=== PATIENT | female | born 1995 | race Caucasian/White ===

== ENCOUNTER → 2017-04-10 | Day surgery (SDC) | payer BC ==
[~2017-04-10] VITALS: Ht 177.8 cm; Wt 63.5 kg
[~2017-04-10] MED LIST: ACETAMINOPHEN 325MG/HYDROcodone 7.5MG/15ML UDC ONE; AMPICILLIN/SULBAC 3 GM/NS 100 ML IV SCH; CHLORHEXIDINE GLUCONATE 2 % 1 PACK (2 CLOTHS) TOPICAL PRN; FAMOTIDINE 20 MG/2 ML VIAL ONE; INSULIN HUMAN REGULAR 1,000 UNITS/10 ML VIAL SQ PRN; LACTATED RINGER'S 1000 ML IV PRN; MEPERIDINE HCL 25 MG/ML VIAL ONE; METOPROLOL TARTRATE 25 MG TAB PO PRN; MICROFIBRILLAR COLLAGEN HEMOSTAT 1 GM PKT ONE; MIDAZOLAM HCL 2 MG/2 ML VIAL ONE; MORPHINE SULFATE 4 MG/ML INJ ONE; NORG10TA PO; ONDANSETRON HCL 4 MG/2 ML VIAL IV PUSH ONE; OXYMETAZOLINE HCL 0.05% 15 ML NASAL SPRAY ONE; POVIDONE IODINE 5% (ANTISEPSIS KIT) 4 APPLICATIONS EACH NARE PRN; PROPOFOL 200 MG/20 ML AMP IV ONE; SODIUM CHLORID 0.9% 500 ML IV PRN
[2017-04-10 09:40] VITALS: PULSE 88
[2017-04-10 13:30] VITALS: BP 111/73; PULSE 90; RESP 16; TEMP 98; O2SAT 98
--- NOTE | 2017-04-13 11:40 | MP ---
cc: KATHY YANES M.D. DATE OF SURGERY: 04/10/[address] Kathy Yanes. PREOPERATIVE DIAGNOSIS 1. Chronic tonsillitis. 2. Adenotonsillar hypertrophy. POSTOPERATIVE DIAGNOSIS 1. Chronic tonsillitis. 2. Adenotonsillar hypertrophy. OPERATION PERFORMED Adenotonsillectomy. INDICATIONS Documented in the history and physical. DESCRIPTION OF OPERATION The patient was taken to OR #2 and placed in the supine position. Following induction of general anesthesia and intubation a shoulder roll, a Elliott head drape and a McIvor mouth gag were put in place. The tonsils were removed using the ArthroCare Coblator technique. A few sites of venous and arterial bleeding were cauterized on both sides using the bipolar cautery. When this was completed the adenoids were removed using the suction Bovie at 40 humphrey. The stomach was aspirated of a few cc's of cloudy gastric contents using a #18 [place] sump NG tube. When this was completed the mouth gag was removed and the procedure was terminated. The patient was reversed from anesthesia and taken to Recovery in good condition. No complications. Blood loss 10 mL. MD GABBY Chaves/NITZA /7:21 AM /11:32 AM
== END | disposition home or self-care (01) ==
LOC: PHSDC 06:22
PROVIDERS: ATTEND Otolaryngology
DX: J35.01 Chronic tonsillitis (principal); J35.3 Hypertrophy of tonsils with hypertrophy of adenoids
CPT/HCPCS: 00170; 42821; 88304; J0295; J2175; J2250; J2270; J2405; J3010; J7120